=== PATIENT | male | born 1985 | race Caucasian/White ===

== ENCOUNTER 2022-03-12 09:27 | Emergency (ER) | payer OTHER, SELFPAY ==
--- NOTE | 2022-03-12 09:32 | ED.URI ---
HPI - URI/Sore Throat General Chief Complaint: Upper Respiratory Infection Stated Complaint: COUGH/CONGESTION/FEVER Time Seen by Provider: 03/12/22 09:32 Source: patient and RN notes reviewed History of Present Illness HPI Narrative: Patient is very 36-year-old male who presents to urgent care, with complaints of cough, congestion and fever since Saturday. Patient states he has been taking ibuprofen which tends to help with the symptoms prior we quickly. Patient states his main concern is to find out what his son house, who is here with his mother. States his son has been sick for 2 weeks that has tested negative for both COVID and RSV. Facility did not test him for flu at the time he was seen on the 02 of March. No other acute complaints. No acute distress noted. Patient aware of the plan of care. Some parts of this dictation were generated by voice recognition software and may contain typographical and/or grammatical inaccuracies. Related Data Home Medications Medication Instructions Recorded Confirmed divalproex 250 mg tablet,delayed mg PO 03/12/22 release fluticasone propionate 50 intranasal 03/12/22 mcg/actuation nasal spray,suspension sertraline 100 mg tablet mg 03/12/22 Allergies Allergy/AdvReac Type Severity Reaction Status Date / Time No Known Allergies Allergy Mild Unverified 04/28/14 10:54 Review of Systems Review of Systems: CONSTITUTIONAL: Reports of fever EYES: Denies visual changes, redness, or discharge. ENT: Reports of congestion and postnasal drainage CARDIOVASCULAR: Denies chest pain, palpitations, or edema. RESPIRATORY: Reports cough without dyspnea GASTROINTESTINAL: Denies abdominal pain, nausea, vomiting, or diarrhea. GENITOURINARY: Denies dysuria or hematuria. SKIN: Denies rash or itching. MUSCULOSKELETAL: Denies back pain, joint pain, or myalgia. NEUROLOGIC: Denies headache, numbness, or weakness. All other systems reviewed are negative, except as documented in HPI. PMFSH Comments At the time of my signature, I reviewed and agree with the nursing past medical, surgical, social, and family history. There is no relevant family history pertinent to the patient complaint. Exam Narrative: GENERAL: This is a well-nourished, well-developed patient, in no apparent distress. HEAD: normocephalic, atraumatic. EYES: PERRL. Sclera clear/white. Vision is grossly intact. EARS: External ears normal, auditory canals clear and without drainage, TMs normal without perforation. Hearing grossly intact. NOSE: External nose normal with no obvious nasal discharge, nares without redness, clear rhinorrhea. THROAT: Mucous membranes moist, posterior pharynx clear. Moderate postnasal drainage NECK: Neck supple, non-tender without lymphadenopathy, masses or thyromegaly. CARDIOVASCULAR: Regular rate and rhythm without murmurs, gallops, or rubs. RESPIRATORY: Clear to auscultation. Breath sounds equal bilaterally. No wheezes, rales, or rhonchi. SKIN: warm, intact with no suspicious lesions or rash, good texture and turgor. NEURO: awake, alert, and oriented to person, place and time. There were no obvious focal neurologic abnormalities. EXTREMITIES: No clubbing, cyanosis, or edema. Course Course Level of Care: Express Care Visit Vital Signs Vital signs: Vital Signs Temperature 99.9 F H 03/12/22 09:52 Pulse Rate 102 H 03/12/22 09:52 Respiratory Rate 16 03/12/22 09:52 Blood Pressure 140/109 H 03/12/22 09:52 Pulse Oximetry 98 03/12/22 09:52 Temperature 99.9 F H 03/12/22 09:52 Pulse Rate 102 H 03/12/22 09:52 Respiratory Rate 16 03/12/22 09:52 Blood Pressure 140/109 H 03/12/22 09:52 Pulse Oximetry 98 03/12/22 09:52 Reviewed- Patient is informed that they may have pre-hypertension or hypertension based on a blood pressure reading in the department. I recommend the patient call the primary care provider listed on their discharge instructions or a physician of their
[2022-03-12 09:52] VITALS: BP 140/109; PULSE 102; RESP 16; TEMP 37.7; O2SAT 98
== END 2022-03-12 10:12 | disposition home or self-care (01) ==
PROVIDERS: Emergency Provider Nurse Practitioner Family; PCP Internal Medicine
DX: J06.9 Acute upper respiratory infection, unspecified (principal)
CPT/HCPCS: 99202; G0463